=== PATIENT | female | born 1945 | race Caucasian/White ===

== ENCOUNTER 2017-12-20 17:10 | Emergency (ER) | payer OTHER ==
[~2017-12-20] VITALS: Ht 152.4 cm; Wt 47.6 kg
[~2017-12-20 17:10] MED LIST: KETO10TA2 PO; PTE NO RECUERDA
== END 2017-12-20 19:48 | disposition home or self-care (01) ==
LOC: ER 17:10
DX: M79.604 Pain in right leg (principal); M25.551 Pain in right hip; M25.552 Pain in left hip

== ENCOUNTER 2018-01-08 10:57 | Day surgery (SDC) | payer OTHER ==
[~2018-01-08] VITALS: Ht 157.5 cm; Wt 47.6 kg
[2018-01-08] MEDS ORDERED: NORVASC10 MG PO (11:28)
[2018-01-08] MEDS ORDERED: CATAFLAN PO (11:28)
[2018-01-09] MEDS ORDERED: ULTRACET PO ×2 (10:09)
== END 2018-01-09 13:00 | disposition home or self-care (01) ==
LOC: ER 10:57 → CIR.AMB 14:00 → ER 17:51 → SURG 17:51 → SEC-K 17:51 → SURG 20:32 → CIR.AMB 01-09 07:00 → EDSTATUS 01-09 07:00 → CIR.AMB 01-09 13:00 → SEC-K 01-09 16:26 → SURG 01-09 16:26
DX: S82.851A Displaced trimalleolar fracture of right lower leg, initial encounter for closed fracture (principal); S93.431A Sprain of tibiofibular ligament of right ankle, initial encounter

== ENCOUNTER 2018-01-11 17:51 | Outpatient (CLI) | payer OTHER ==
[~2018-01-11 17:51] MED LIST changes: +CATAFLAN PO; +NORVASC10 MG PO; +ULTRACET PO
== END 2018-01-11 17:56 | disposition home or self-care (01) ==
LOC: RAD 17:51
DX: M25.561 Pain in right knee (principal); M23.91 Unspecified internal derangement of right knee; M79.651 Pain in right thigh

== ENCOUNTER 2020-12-21 07:27 | Emergency (ER) | payer OTHER ==
[~2020-12-21] VITALS: Ht 160 cm; Wt 51.7 kg
[~2020-12-21 07:27] MED LIST changes: +DICLOFENAC POTA50 MG PO; +NABUMETONE750 MG PO; +VASOTEC5 MG
== END 2020-12-21 22:14 | disposition home or self-care (01) ==
LOC: ER 07:27
DX: K29.60 Other gastritis without bleeding (principal); Z20.822 Contact with and (suspected) exposure to COVID-19